=== PATIENT | female | born 1940 | race Caucasian/White ===

== ENCOUNTER 2020-11-04 21:02 | Emergency (ER) | payer OTHER, MEDICAID ==
[~2020-11-04 21:02] MED LIST: ATORVASTATIN CA20 MG PO; DONEPEZIL HCL10 MG PO; FERROUS SULFAT325 MG PO; FUROSEMIDE40 MG PO; HYDRALAZINE HC100 MG PO; HYDROCHLOROTHIA25 MG PO; IMDUR ER TAB 6060 MG PO; LEVOTHYROXINE88 MCG PO; LOPRESSOR 50 MG50 MG PO; LORTAB 5-325 M1 EACH PO; MAGOX 400400 MG PO; NAMENDA5 MG PO; NEPHRO-VITE RX1 EACH PO; ONDANSETRON HCL4 MG PO; PANTOPRAZOLE SO40 MG PO; POTASSIUM CHLO20 ME2 PO; RETACRIT4000 UNIT/ SC; TERAZOSIN HCL2 MG PO; VITAMIN C 500500 MG PO; VITAMIN D21250 MCG PO
[2020-11-05 00:34] LABS: HEMOGLOBIN 10.1 gm/dl (12.3-15.3); RED BLOOD COUNT 2.98 M/UL (4.00-5.10); WHITE BLOOD COUNT 8.1 K/UL (4.5-11.0)
== END 2020-11-05 01:48 | disposition home or self-care (01) ==
LOC: ER1 21:02
PROVIDERS: Physician Assistant Medical
DX: T82.838A Hemorrhage due to vascular prosthetic devices, implants and grafts, initial encounter (principal); E11.22 Type 2 diabetes mellitus with diabetic chronic kidney disease; N18.9 Chronic kidney disease, unspecified; I50.9 Heart failure, unspecified; I48.91 Unspecified atrial fibrillation
CPT/HCPCS: 80053; 85025; 85610; 99283

== ENCOUNTER → 2020-11-17 | Outpatient (CLI) | payer OTHER | LOC: EXRD 15:53 | DX: J90 Pleural effusion, not elsewhere classified (principal); J98.11 Atelectasis | CPT/HCPCS: 71046 ==

== ENCOUNTER 2022-02-25 06:05 | Inpatient (IN) | payer OTHER ==
[~2022-02-25] VITALS: Ht 157.5 cm; Wt 56.7 kg
[~2022-02-25 06:05] MED LIST changes: -IMDUR ER TAB 6060 MG PO; +ISOSORBIDE MONO60 MG PO; +LEVOTHYROXINE100 MCG PO; -LEVOTHYROXINE88 MCG PO; -LOPRESSOR 50 MG50 MG PO; +METOPROLOL SUCC25 MG PO; -NEPHRO-VITE RX1 EACH PO; -PANTOPRAZOLE SO40 MG PO; +PROTONIX40 MG PO; +RENA-VITE RX T1 EACH PO; -TERAZOSIN HCL2 MG PO; +TERAZOSIN HCL5 MG PO
[2022-02-25 06:47] LABS: HEMOGLOBIN 11.8 gm/dl (12.3-15.3); RED BLOOD COUNT 3.31 M/UL (4.00-5.10); WHITE BLOOD COUNT 10.7 K/UL (4.5-11.0)
[2022-02-25] MEDS ORDERED: COLESTIPOL HCL1 GM PO (10:25)
[2022-02-25] MEDS ORDERED: CETIRIZINE HCL10 MG PO (10:25)
[2022-02-25] MEDS ORDERED: AMLODIPINE BESY10 MG PO (10:26)
[2022-02-25] MEDS ORDERED: FLONASE ALLER15.8 ML (10:26)
[2022-02-25] MEDS ORDERED: LISINOPRIL20 MG PO (10:26)
[2022-02-25] MEDS ORDERED: DIPHENOXYLATE-1 EACH PO (10:26)
[2022-02-25] MEDS ORDERED: MIRTAZAPINE7.5 MG PO (10:26)
[2022-02-25] MEDS ORDERED: CALCIUM ACETAT667 M1 PO (10:29)
[2022-02-25] MEDS ORDERED: VITAMIN C500 M4 PO (10:58)
[2022-02-25] MEDS ORDERED: TYLENOL EXTRA500 MG PO (10:58)
[2022-02-25] MEDS ORDERED: VITAMIN D21250 MCG PO (10:58)
[2022-02-25] MEDS ORDERED: IRON325 M1 PO (11:28)
[2022-02-26 06:31] LABS: HEMOGLOBIN 10.6 gm/dl (12.3-15.3); RED BLOOD COUNT 2.99 M/UL (4.00-5.10)
[2022-02-26 06:53] LABS: WHITE BLOOD COUNT 6.9 K/UL (4.5-11.0)
[2022-02-27 05:13] LABS: HEMOGLOBIN 9.9 gm/dl (12.3-15.3); RED BLOOD COUNT 2.74 M/UL (4.00-5.10); WHITE BLOOD COUNT 7.7 K/UL (4.5-11.0)
[2022-02-27 08:14] LABS: HBSAG SCREEN Negative (Negative); HCV AB <0.1 (0.0-0.9); HEP A AB, IGM Negative (Negative); HEP B CORE AB, IGM Negative (Negative)
[2022-02-27 15:10] LABS: HEMATOCRIT 28.2 % (34.0-46.6)
[2022-02-27 19:45] LABS: AMYLASE, BODY FLUID 42 U/L; LDH, BODY FLUID 65 U/L
[2022-02-28 04:58] LABS: HEMOGLOBIN 9.4 gm/dl (12.3-15.3); RED BLOOD COUNT 2.64 M/UL (4.00-5.10)
[2022-02-28 05:14] LABS: WHITE BLOOD COUNT 9.9 K/UL (4.5-11.0)
[2022-02-28 17:11] LABS: ORGANISM ID Not indicated. (.); SPECIMEN SOURCE Urine (.); STREPTOCOCCUS PNEUMONIAE AG Negative (Negative)
[2022-03-01 04:19] LABS: HEMOGLOBIN 9.6 gm/dl (12.3-15.3); RED BLOOD COUNT 2.74 M/UL (4.00-5.10); WHITE BLOOD COUNT 10.5 K/UL (4.5-11.0)
[2022-03-02 07:45] LABS: HEMOGLOBIN 11.1 gm/dl (12.3-15.3)
[2022-03-02 07:46] LABS: RED BLOOD COUNT 3.15 M/UL (4.00-5.10); WHITE BLOOD COUNT 17.7 K/UL (4.5-11.0)
[2022-03-03 04:14] LABS: HEMOGLOBIN 10.7 gm/dl (12.3-15.3); RED BLOOD COUNT 3.03 M/UL (4.00-5.10)
[2022-03-04 06:17] LABS: HEMOGLOBIN 10.8 gm/dl (12.3-15.3); RED BLOOD COUNT 2.99 M/UL (4.00-5.10); WHITE BLOOD COUNT 11.6 K/UL (4.5-11.0)
[2022-03-04 12:58] LABS: HEMOGLOBIN 10.7 gm/dl (12.3-15.3); RED BLOOD COUNT 2.96 M/UL (4.00-5.10); WHITE BLOOD COUNT 15.9 K/UL (4.5-11.0)
[2022-03-05 03:53] LABS: HEMOGLOBIN 10.7 gm/dl (12.3-15.3); RED BLOOD COUNT 3.02 M/UL (4.00-5.10)
[2022-03-06 07:39] LABS: HEMOGLOBIN 11.2 gm/dl (12.3-15.3); RED BLOOD COUNT 3.14 M/UL (4.00-5.10); WHITE BLOOD COUNT 13.1 K/UL (4.5-11.0)
[2022-03-07 03:57] LABS: HEMOGLOBIN 10.6 gm/dl (12.3-15.3); RED BLOOD COUNT 2.93 M/UL (4.00-5.10); WHITE BLOOD COUNT 12.4 K/UL (4.5-11.0)
[2022-03-08 06:41] LABS: HEMOGLOBIN 10.8 gm/dl (12.3-15.3); RED BLOOD COUNT 3.04 M/UL (4.00-5.10); WHITE BLOOD COUNT 11.5 K/UL (4.5-11.0)
[2022-03-08] MEDS ORDERED: LANTUS INS100 UTS/M1 SQ (11:33)
[2022-03-08] MEDS ORDERED: HEPARIN IV (11:33)
[2022-03-08] MEDS ORDERED: ASPIRIN EC81 MG PO (11:33)
[2022-03-08] MEDS ORDERED: HUMALOG 10100 UNITS/ SC (11:33)
[2022-03-08] MEDS ORDERED: LOPRESSOR 25 MG25 MG PO (11:33)
[2022-03-08] MEDS ORDERED: MERREM IV (12:20)
== END 2022-03-08 13:09 | disposition short-term general hospital (02) | DRG 286 ==
LOC: ER1 06:05 → CCU 08:33 → CDU 08:33 → CCU 20:30
PROVIDERS: Internal Medicine; Internal Medicine Cardiovascular Disease; Internal Medicine Hematology & Oncology; Internal Medicine Nephrology; Internal Medicine Pulmonary Disease; Physician Assistant Medical; Registered Nurse; Student in an Organized Health Care Education/Training Program; ADMIT Internal Medicine
PROC: 5A0935A Assistance with Respiratory Ventilation, Less than 24 Consecutive Hours, High Flow/Velocity Cannula (ICD-10-PCS; 2022-02-25)
PROC: 5A09357 Assistance with Respiratory Ventilation, Less than 24 Consecutive Hours, Continuous Positive Airway Pressure (ICD-10-PCS; 2022-02-25)
PROC: 5A1D70Z Performance of Urinary Filtration, Intermittent, Less than 6 Hours Per Day (ICD-10-PCS; 2022-02-25)
PROC: B24BZZZ Ultrasonography of Heart with Aorta (ICD-10-PCS; 2022-02-26)
PROC: 5A09357 Assistance with Respiratory Ventilation, Less than 24 Consecutive Hours, Continuous Positive Airway Pressure (ICD-10-PCS; 2022-02-26)
PROC: 5A0935A Assistance with Respiratory Ventilation, Less than 24 Consecutive Hours, High Flow/Velocity Cannula (ICD-10-PCS; 2022-02-26)
PROC: 5A1D70Z Performance of Urinary Filtration, Intermittent, Less than 6 Hours Per Day (ICD-10-PCS; 2022-02-26)
PROC: 0W9B3ZZ Drainage of Left Pleural Cavity, Percutaneous Approach (ICD-10-PCS; 2022-02-27)
PROC: 0BC78ZZ Extirpation of Matter from Left Main Bronchus, Via Natural or Artificial Opening Endoscopic (ICD-10-PCS; 2022-02-27)
PROC: 0B9F8ZZ Drainage of Right Lower Lung Lobe, Via Natural or Artificial Opening Endoscopic (ICD-10-PCS; 2022-02-27)
PROC: 0B978ZZ Drainage of Left Main Bronchus, Via Natural or Artificial Opening Endoscopic (ICD-10-PCS; 2022-02-27)
PROC: 0BDL8ZX Extraction of Left Lung, Via Natural or Artificial Opening Endoscopic, Diagnostic (ICD-10-PCS; 2022-02-27)
PROC: 5A09357 Assistance with Respiratory Ventilation, Less than 24 Consecutive Hours, Continuous Positive Airway Pressure (ICD-10-PCS; 2022-02-27)
PROC: 5A0935A Assistance with Respiratory Ventilation, Less than 24 Consecutive Hours, High Flow/Velocity Cannula (ICD-10-PCS; 2022-02-27)
PROC: 5A1D70Z Performance of Urinary Filtration, Intermittent, Less than 6 Hours Per Day (ICD-10-PCS; 2022-02-27)
PROC: 5A09357 Assistance with Respiratory Ventilation, Less than 24 Consecutive Hours, Continuous Positive Airway Pressure (ICD-10-PCS; 2022-02-28)
PROC: 5A0935A Assistance with Respiratory Ventilation, Less than 24 Consecutive Hours, High Flow/Velocity Cannula (ICD-10-PCS; 2022-02-28)
PROC: 5A1D70Z Performance of Urinary Filtration, Intermittent, Less than 6 Hours Per Day (ICD-10-PCS; 2022-02-28)
PROC: 5A09357 Assistance with Respiratory Ventilation, Less than 24 Consecutive Hours, Continuous Positive Airway Pressure (ICD-10-PCS; 2022-03-02)
PROC: 5A1D70Z Performance of Urinary Filtration, Intermittent, Less than 6 Hours Per Day (ICD-10-PCS; 2022-03-02)
PROC: 5A09357 Assistance with Respiratory Ventilation, Less than 24 Consecutive Hours, Continuous Positive Airway Pressure (ICD-10-PCS; 2022-03-03)
PROC: 5A1D70Z Performance of Urinary Filtration, Intermittent, Less than 6 Hours Per Day (ICD-10-PCS; 2022-03-03)
PROC: 5A09357 Assistance with Respiratory Ventilation, Less than 24 Consecutive Hours, Continuous Positive Airway Pressure (ICD-10-PCS; 2022-03-04)
PROC: 5A09357 Assistance with Respiratory Ventilation, Less than 24 Consecutive Hours, Continuous Positive Airway Pressure (ICD-10-PCS; 2022-03-05)
PROC: 3E033XZ Introduction of Vasopressor into Peripheral Vein, Percutaneous Approach (ICD-10-PCS; 2022-03-05)
PROC: 5A1D70Z Performance of Urinary Filtration, Intermittent, Less than 6 Hours Per Day (ICD-10-PCS; 2022-03-06)
PROC: 4A023N7 Measurement of Cardiac Sampling and Pressure, Left Heart, Percutaneous Approach (ICD-10-PCS; principal; 2022-03-07)
PROC: B2111ZZ Fluoroscopy of Multiple Coronary Arteries using Low Osmolar Contrast (ICD-10-PCS; 2022-03-07)
PROC: B41G1ZZ Fluoroscopy of Left Lower Extremity Arteries using Low Osmolar Contrast (ICD-10-PCS; 2022-03-07)
DX: I13.2 Hypertensive heart and chronic kidney disease with heart failure and with stage 5 chronic kidney disease, or end stage renal disease (principal); A41.9 Sepsis, unspecified organism; G93.41 Metabolic encephalopathy; I50.33 Acute on chronic diastolic (congestive) heart failure; N18.6 End stage renal disease; J96.21 Acute and chronic respiratory failure with hypoxia; J18.9 Pneumonia, unspecified organism; J98.11 Atelectasis; R47.01 Aphasia; E87.1 Hypo-osmolality and hyponatremia; E87.2 Acidosis; J95.61 Intraoperative hemorrhage and hematoma of a respiratory system organ or structure complicating a respiratory system procedure; F03.90 Unspecified dementia, unspecified severity, without behavioral disturbance, psychotic disturbance, mood disturbance, and anxiety; I48.0 Paroxysmal atrial fibrillation; D50.9 Iron deficiency anemia, unspecified; E11.22 Type 2 diabetes mellitus with diabetic chronic kidney disease; E78.5 Hyperlipidemia, unspecified; Z20.822 Contact with and (suspected) exposure to COVID-19; K21.9 Gastro-esophageal reflux disease without esophagitis; Z96.652 Presence of left artificial knee joint; E11.649 Type 2 diabetes mellitus with hypoglycemia without coma; R47.81 Slurred speech; D75.89 Other specified diseases of blood and blood-forming organs; Z96.642 Presence of left artificial hip joint; S20.212A Contusion of left front wall of thorax, initial encounter; E87.5 Hyperkalemia; E11.65 Type 2 diabetes mellitus with hyperglycemia; I49.3 Ventricular premature depolarization; D69.6 Thrombocytopenia, unspecified; Z98.890 Other specified postprocedural states; Z80.1 Family history of malignant neoplasm of trachea, bronchus and lung; Z80.8 Family history of malignant neoplasm of other organs or systems; E03.9 Hypothyroidism, unspecified; Z99.2 Dependence on renal dialysis; Z88.8 Allergy status to other drugs, medicaments and biological substances; I25.5 Ischemic cardiomyopathy; I42.9 Cardiomyopathy, unspecified; I25.82 Chronic total occlusion of coronary artery
CPT/HCPCS: ECHO; 0240U; 36415; 36600; 70450; 70496; 71045; 71250; 76705; 80048; 80053; 80074; 82009; 82150; 82550; 82553; 82607; 82728; 82746; 82747; 82803; 82945; 82962; 83036; 83540; 83550; 83605; 83615; 83735; 83880; 83921; 84100; 84439; 84443; 84484; 85007; 85025; 85027; 85610; 85730; 87040; 87070; 87081; 87086; 87205; 87278; 87899; 89051; 90937; 92526; 92610; 93005; 93306; 94640; 94660; 94664; 94668; 94760; 96374; 96375; 97110; 97161; 97530; 99285; A6212; C1769; C1894; G0257; J0171; J0456; J0692; J0696; J1644; J1940; J2185; J2250; J2270; J2405; J2920; J3010; J7030; J7040; P9047; Q0177; Q9965; Q9967

== ENCOUNTER → 2022-04-26 | Outpatient (CLI) | payer OTHER ==
[~2022-04-26] MED LIST changes: +AMLODIPINE BESY10 MG PO; +ASPIRIN EC81 MG PO; +CALCIUM ACETAT667 M1 PO; +CETIRIZINE HCL10 MG PO; +COLESTIPOL HCL1 GM PO; +DIPHENOXYLATE-1 EACH PO; +FLONASE ALLER15.8 ML; +HEPARIN IV; +HUMALOG 10100 UNITS/ SC; +IRON325 M1 PO; +LANTUS INS100 UTS/M1 SQ; +LISINOPRIL20 MG PO; +LOPRESSOR 25 MG25 MG PO; +MERREM IV; +MIRTAZAPINE7.5 MG PO; +TYLENOL EXTRA500 MG PO; +VITAMIN C500 M4 PO
== END ==
LOC: WCC 07:05
DX: E11.628 Type 2 diabetes mellitus with other skin complications (principal); S50.811A Abrasion of right forearm, initial encounter; L89.150 Pressure ulcer of sacral region, unstageable; I25.10 Atherosclerotic heart disease of native coronary artery without angina pectoris; I48.91 Unspecified atrial fibrillation; I13.2 Hypertensive heart and chronic kidney disease with heart failure and with stage 5 chronic kidney disease, or end stage renal disease; I50.9 Heart failure, unspecified; N18.6 End stage renal disease; D50.9 Iron deficiency anemia, unspecified
CPT/HCPCS: G0463

== ENCOUNTER → 2022-05-03 | Outpatient (CLI) | payer OTHER | LOC: WCC 07:56 | DX: S50.811A Abrasion of right forearm, initial encounter (principal); L89.150 Pressure ulcer of sacral region, unstageable; D50.9 Iron deficiency anemia, unspecified; I25.10 Atherosclerotic heart disease of native coronary artery without angina pectoris; I48.91 Unspecified atrial fibrillation; I13.2 Hypertensive heart and chronic kidney disease with heart failure and with stage 5 chronic kidney disease, or end stage renal disease; E11.22 Type 2 diabetes mellitus with diabetic chronic kidney disease; N18.6 End stage renal disease; I50.9 Heart failure, unspecified; E11.628 Type 2 diabetes mellitus with other skin complications; Z99.2 Dependence on renal dialysis; Z79.01 Long term (current) use of anticoagulants; Z79.899 Other long term (current) drug therapy; Z88.8 Allergy status to other drugs, medicaments and biological substances | CPT/HCPCS: 97597 ==